=== PATIENT | male | born 1950 | race Caucasian/White ===

== ENCOUNTER 2022-03-21 13:04 | Day surgery (SDC) | payer MEDICAID, OTHER ==
[~2022-03-21 13:04] MED LIST: Cefuroxime 10 MG/ML SYRINGE EYERT SCH; Pilocarpine 4% Ophth Soln 15 ML Bot EYERT SCH
[2022-03-21] MEDS: Polymyxin B/Trimethoprim 10 ML Bottle EYERT SCH ×3 (14:40→16:10)
[2022-03-21] MEDS: Brimonidine 0.2% Ophth Soln 5 ML Bottle EYERT SCH ×3 (14:44→16:10)
[2022-03-21] MEDS: Phenylephrine 2.5% Ophth Soln 2 ML Bot EYERT SCH ×5 (14:52→15:51)
[2022-03-21] MEDS: Tropicamide 1% Ophth Soln 15 ML Bottle EYERT SCH ×4 (14:57→15:35)
[2022-03-21] MEDS: Tetracaine HCl/PF 0.5% 4 ML Bottle EYEBOTH SCH ×5 (15:40→15:59)
[2022-03-21] MEDS: Lidocaine 1% PF 2 ML SDV INJECT SCH ×2 (15:57→15:59)
== END 2022-03-21 16:21 | disposition home or self-care (01) ==
LOC: JD.SDS 13:04
PROVIDERS: ATTEND Ophthalmology
DX: H25.813 Combined forms of age-related cataract, bilateral (principal); H16.103 Unspecified superficial keratitis, bilateral; H16.223 Keratoconjunctivitis sicca, not specified as Sjogren's, bilateral; H02.834 Dermatochalasis of left upper eyelid; H02.831 Dermatochalasis of right upper eyelid; H43.813 Vitreous degeneration, bilateral; I10 Essential (primary) hypertension; F32.A Depression, unspecified; E78.00 Pure hypercholesterolemia, unspecified; F41.9 Anxiety disorder, unspecified; Z87.891 Personal history of nicotine dependence; Z79.899 Other long term (current) drug therapy
CPT/HCPCS: 66984; J0697; C1780

== ENCOUNTER 2022-04-18 08:21 | Day surgery (SDC) | payer OTHER ==
[~2022-04-18 08:21] MED LIST changes: +Cefuroxime 10 MG/ML SYRINGE EYELF SCH; -Cefuroxime 10 MG/ML SYRINGE EYERT SCH; +Lidocaine 1% PF 2 ML SDV INJECT SCH; -Pilocarpine 4% Ophth Soln 15 ML Bot EYERT SCH
[2022-04-18] MEDS: Polymyxin B/Trimethoprim 10 ML Bottle EYELF SCH ×4 (09:15→10:35)
[2022-04-18] MEDS: Brimonidine 0.2% Ophth Soln 5 ML Bottle EYELF SCH ×4 (09:19→10:35)
[2022-04-18] MEDS: Phenylephrine 2.5% Ophth Soln 2 ML Bot EYELF SCH ×5 (09:23→10:14)
[2022-04-18] MEDS: Tropicamide 1% Ophth Soln 15 ML Bottle EYELF SCH ×4 (09:26→09:52)
[2022-04-18] MEDS: Tetracaine HCl/PF 0.5% 4 ML Bottle EYEBOTH SCH ×4 (09:55→10:22)
[2022-04-18] MEDS: Pilocarpine 4% Ophth Soln 15 ML Bot EYELF SCH ×2 (10:32→10:35)
== END 2022-04-18 10:47 | disposition home or self-care (01) ==
LOC: JD.SDS 08:21
PROVIDERS: ATTEND Ophthalmology
DX: H25.812 Combined forms of age-related cataract, left eye (principal); H43.813 Vitreous degeneration, bilateral; H52.31 Anisometropia; H02.831 Dermatochalasis of right upper eyelid; H02.834 Dermatochalasis of left upper eyelid; I10 Essential (primary) hypertension; E78.00 Pure hypercholesterolemia, unspecified; F41.9 Anxiety disorder, unspecified; F32.A Depression, unspecified; M19.90 Unspecified osteoarthritis, unspecified site; Z79.82 Long term (current) use of aspirin; Z96.1 Presence of intraocular lens; Z79.899 Other long term (current) drug therapy; Z79.1 Long term (current) use of non-steroidal anti-inflammatories (NSAID); Z98.890 Other specified postprocedural states
CPT/HCPCS: 66984; J0697; C1780